=== PATIENT | female | born 1985 | race American Indian/Alaskan Native ===

== ENCOUNTER 2020-09-04 18:56 | Inpatient (IN) | payer MEDICAID ==
[2020-09-04] MEDS ORDERED: SODIUM CHLORIDE 0.9% 1000 ML 1,000 ML IV ONE (19:34)
[2020-09-04 19:44] LABS: Hematocrit 40.3 % (30.3-42.9); Hemoglobin 13.9 gm/dl (10.1-14.3); Mean Corpuscular HGB Conc 35 % (30-34); Mean Corpuscular Volume 85 fl (79-97); Platelet Count 447 K/mm3 (140-440); Red Blood Count 4.74 M/mm3 (3.65-5.03); Red Cell Distribution Width 14.2 % (13.2-15.2)
[2020-09-04 19:55] LABS: INR 0.93 (0.87-1.13); Partial Thromboplastin Time 25.3 Sec. (24.2-36.6)
[2020-09-04 20:21] LABS: Alanine Aminotransferase 31 units/L (7-56); Albumin 3.7 g/dL (3.9-5); BUN/Creatinine Ratio 15; Blood Urea Nitrogen 12 mg/dL (7-17); Hemolysis Index 54
--- NOTE | 2020-09-04 20:29 | Emergency Department Report ---
ED General Adult HPI - General Chief complaint: Arrhythmia/Palpitations Stated complaint: TACHYCARDIA Time Seen by Provider: 09/04/20 19:20 Source: EMS Mode of arrival: Ambulatory Limitations: Other - History of Present Illness Initial comments: The patient presents to the emergency department with her mother after being seen at [facility] for evaluation of hyperthyroidism. Per the patient's mom the patient has a developmental delay that she helps with the history. Patient has a history of hypothyroidism and takes thyroid medications. The mother states she gives the patient her thyroid medicine daily and there is no way she took more than 1 pill. Patient sees cushion worker which mother contacted today because the patient had had a couple of days of shaking and tremoring and there was concerned that the patient could be in a thyroid storm. Mom denies any [id number] medications besides multivitamin and fish oil. -: Gradual Severity scale (0 -10): 0 Consistency: constant Improves with: none Worsens with: none Associated Symptoms: denies other symptoms Treatments Prior to Arrival: none - Related Data Allergies Allergy/AdvReac Type Severity Reaction Status Date / Time No Known Allergies Allergy Unverified 09/04/20 19:39 ED Review of Systems ROS: Stated complaint: TACHYCARDIA Other details as noted in HPI Comment: All other systems reviewed and negative Constitutional: denies: chills, fever Eyes: denies: eye pain, eye discharge, vision change ENT: denies: ear pain, throat pain Respiratory: denies: cough, shortness of breath, wheezing Cardiovascular: denies: chest pain, palpitations Endocrine: no symptoms reported Gastrointestinal: denies: abdominal pain, nausea, diarrhea Genitourinary: denies: urgency, dysuria, discharge Musculoskeletal: denies: back pain, joint swelling, arthralgia Skin: denies: rash, lesions Neurological: denies: headache, weakness, paresthesias Psychiatric: denies: anxiety, depression Hematological/Lymphatic: denies: easy bleeding, easy bruising ED Past Medical Hx - Past Medical History Hx Hypertension: Yes Additional medical history: hypothyroidism - Social History Smoking Status: Never Smoker ED Physical Exam - General Limitations: Other General appearance: alert, in no apparent distress, other (Tremors present) - Head Head exam: Present: atraumatic, normocephalic - Eye Eye exam: Present: normal appearance, PERRL, EOMI - ENT ENT exam: Present: mucous membranes moist - Neck Neck exam: Present: normal inspection - Respiratory Respiratory exam: Present: normal lung sounds bilaterally. Absent: respiratory distress - Cardiovascular Cardiovascular Exam: Present: normal rhythm, tachycardia. Absent: systolic murmur, diastolic murmur, rubs, gallop - GI/Abdominal GI/Abdominal exam: Present: soft, normal bowel sounds. Absent: distended, tenderness - Extremities Exam Extremities exam: Present: normal inspection - Back Exam Back exam: Present: normal inspection - Neurological Exam Neurological exam: Present: alert, oriented X3, CN II-XII intact. Absent: motor sensory deficit - Psychiatric Psychiatric exam: Present: normal affect, normal mood - Skin Skin exam: Present: warm, dry, intact, normal color. Absent: rash ED Course Vital Signs 09/04/20 09/04/20 09/04/20 19:05 19:15 19:16 Temperature 98.0 F Pulse Rate 143 H 135 H 136 H Respiratory 18 26 H 27 H Rate Blood Pressure 145/75 145/75 Blood Pressure 145/75 [Left] O2 Sat by Pulse 98 98 99 Oximetry 09/04/20 09/04/20 09/04/20 19:18 19:20 19:22 Temperature Pulse Rate 133 H 132 H 133 H Respiratory 18 32 H 41 H Rate Blood Pressure 145/75 145/75 145/75 Blood Pressure [Left] O2 Sat by Pulse 99 98 97 Oximetry 09/04/20 09/04/20 09/04/20 19:24 19:26 19:28 Temperature Pulse Rate 134 H 136 H 136 H Respiratory 26 H 38 H 27 H Rate Blood Pressure 145/75 145/75 145/75 Blood Pressure [Left] O2 Sat by Pulse 98 98 99 Oximetry 09/04/20 09/04/20 09/04/20 19:30 19:33 19:35 Temperature Pulse Rate 146 H 140 H 128 H Respiratory 27 H 22 52 H Rate Blood Pressure 145/75 Blood Pressure [Left] O2 Sat by Pulse 98 98 97 Oximetry 09/04/20 09/04/20 09/04/20 19:37 19:39 19:41 Temperature Pulse Rate 137 H 134 H 138 H Respiratory 41 H 36 H 23 Rate Blood Pressure Blood Pressure [Left] O2 Sat by Pulse 97 99 99 Oximetry 09/04/20 09/04/20 09/04/20 19:43 19:45 19:47 Temperature Pulse Rate 137 H 135 H 153 H Respiratory 41 H 37 H 28 H Rate Blood Pressure Blood Pressure [Left] O2 Sat by Pulse 97 98 99 Oximetry 09/04/20 09/04/20 09/04/20 19:49 19:51 19:53 Temperature Pulse Rate 144 H 139 H 138 H Respiratory 25 H 48 H 33 H Rate Blood Pressure Blood Pressure [Left] O2 Sat by Pulse 98 98 98 Oximetry 09/04/20 09/04/20 09/04/20 19:55 19:57 19:59 Temperature Pulse Rate 137 H 138 H 137 H Respiratory 37 H 48 H 36 H Rate Blood Pressure 145/75 145/75 145/75 Blood Pressure [Left] O2 Sat by Pulse 96 97 97 Oximetry 09/04/20 09/04/20 09/04/20 20:01 20:03 20:04 Temperature Pulse Rate 136 H 132 H 133 H Respiratory 32 H 32 H 29 H Rate Blood Pressure 145/75 145/75 145/75 Blood Pressure [Left] O2 Sat by Pulse 98 97 97 Oximetry 09/04/20 09/04/20 09/04/20 20:05 20:07 20:09 Temperature Pulse Rate 133 H 136 H 134 H Respiratory 26 H 19 27 H Rate Blood Pressure 145/75 145/75 145/75 Blood Pressure [Left] O2 Sat by Pulse 97 97 98 Oximetry 09/04/20 09/04/20 09/04/20 20:11 20:13 20:15 Temperature Pulse Rate 133 H 129 H 132 H Respiratory 39 H 35 H 39 H Rate Blood Pressure 145/75 145/75 145/75 Blood Pressure [Left] O2 Sat by Pulse 97 97 98 Oximetry 09/04/20 09/04/20 09/04/20 20:17 20:18 20:31 Temperature Pulse Rate 130 H 134 H 140 H Respiratory 39 H 46 H 52 H Rate Blood Pressure 145/75 145/75 145/75 Blood Pressure [Left] O2 Sat by Pulse 98 98 98 Oximetry 09/04/20 09/04/20 09/04/20 20:33 20:35 20:37 Temperature Pulse Rate 131 H 124 H 123 H Respiratory 43 H 37 H 32 H Rate Blood Pressure 145/75 145/75 145/75 Blood Pressure [Left] O2 Sat by Pulse 97 98 97 Oximetry 06/02/21 06/02/21 06/02/21 20:39 20:41 20:43 Temperature Pulse Rate 124 H 130 H 128 H Respiratory 31 H 45 H 36 H Rate Blood Pressure 145/75 145/75 145/75 Blood Pressure [Left] O2 Sat by Pulse 97 98 96 Oximetry 09/04/20 09/04/20 09/04/20 20:45 20:47 20:49 Temperature Pulse Rate 119 H 119 H 122 H Respiratory 38 H 35 H 37 H Rate Blood Pressure 145/75 145/75 145/75 Blood Pressure [Left] O2 Sat by Pulse 97 97 96 Oximetry 09/04/20 20:51 Temperature Pulse Rate 115 H Respiratory 37 H Rate Blood Pressure 145/75 Blood Pressure [Left] O2 Sat by Pulse 97 Oximetry ED Medical Decision Making - Lab Data Result diagrams: 09/04/20 19:29 09/04/20 19:29 Lab Results 09/04/20 09/04/20 09/04/20 Range/Units 19:29 19:29 19:29 WBC 4.8 (4.5-11.0) K/mm3 RBC 4.74 (3.65-5.03) M/mm3 Hgb 13.9 (10.1-14.3) gm/dl Hct 40.3 (30.3-42.9) % MCV 85 (79-97) fl MCH 29 (28-32) pg MCHC 35 H (30-34) % RDW 14.2 (13.2-15.2) % Plt Count 447 H (140-440) K/mm3 Add Manual Diff Complete Total Counted 100 Seg Neuts % (Manual) 46.0 (40.0-70.0) % Lymphocytes % (Manual) 47.0 H (13.4-35.0) % Reactive Lymphs % (Man) 4.0 % Monocytes % (Manual) 3.0 (0.0-7.3) % Nucleated RBC % Not Reportable Seg Neutrophils # Man 2.2 (1.8-7.7) K/mm3 Band Neutrophils # 0.0 K/mm3 Lymphocytes # (Manual) 2.3 (1.2-5.4) K/mm3 Abs React Lymphs (Man) 0.2 K/mm3 Monocytes # (Manual) 0.1 (0.0-0.8) K/mm3 Eosinophils # (Manual) 0.0 (0.0-0.4) K/mm3 Basophils # (Manual) 0.0 (0.0-0.1) K/mm3 Metamyelocytes # 0.0 K/mm3 Myelocytes # 0.0 K/mm3 Promyelocytes # 0.0 K/mm3 Blast Cells # 0.0 K/mm3 WBC Morphology Not Reportable Hypersegmented Neuts Not Reportable Hyposegmented Neuts Not Reportable Hypogranular Neuts Not Reportable Smudge Cells Not Reportable Toxic Granulation Not Reportable Toxic Vacuolation Not Reportable Dohle Bodies Not Reportable Pelger-Huet Anomaly Not Reportable Jacob Rods Not Reportable Platelet Estimate Consistent w auto Clumped Platelets Not Reportable Plt Clumps, EDTA Not Reportable Large Platelets Not Reportable Giant Platelets Not Reportable Platelet Satelliting Not Reportable Plt Morphology Comment Not Reportable RBC Morphology Not Reportable Dimorphic RBCs Not Reportable Polychromasia Not Reportable Hypochromasia Not Reportable Poikilocytosis Not Reportable Anisocytosis 1+ Microcytosis Not Reportable Macrocytosis Not Reportable Spherocytes Not Reportable Pappenheimer Bodies Not Reportable Sickle Cells Not Reportable Target Cells Not Reportable Tear Drop Cells Not Reportable Ovalocytes Not Reportable Helmet Cells Not Reportable [place] Bodies Not Reportable [place] Rings Not Reportable [place] Cells Not Reportable Bite Cells Not Reportable Crenated Cell Not Reportable Elliptocytes Not Reportable Acanthocytes (Spur) Not Reportable Rouleaux Not Reportable Hemoglobin C Crystals Not Reportable Schistocytes Not Reportable Malaria parasites Not Reportable Sajan Bodies Not Reportable Hem Pathologist Commnt No PT 13.1 (12.2-14.9) Sec. INR 0.93 (0.87-1.13) APTT 25.3 (24.2-36.6) Sec. Sodium 134 L (137-145) mmol/L Potassium 3.6 (3.6-5.0) mmol/L Chloride 98.3 (98-107) mmol/L Carbon Dioxide 22 (22-30) mmol/L Anion Gap 17 mmol/L BUN 12 (7-17) mg/dL Creatinine 0.8 (0.6-1.2) mg/dL Estimated GFR > 60 ml/min BUN/Creatinine Ratio 15 % Glucose 156 H (65-100) mg/dL Lactic Acid (0.7-2.0) mmol/L Calcium 9.0 (8.4-10.2) mg/dL Phosphorus 2.30 L (2.5-4.5) mg/dL Magnesium 1.50 L (1.7-2.3) mg/dL Total Bilirubin 0.30 (0.1-1.2) mg/dL AST 37 (5-40) units/L ALT 31 (7-56) units/L Alkaline Phosphatase 95 (35-129) units/L NT-Pro-B Natriuret Pep 18.52 (0-450) pg/mL Total Protein 8.4 H (6.3-8.2) g/dL Albumin 3.7 L (3.9-5) g/dL Albumin/Globulin Ratio 0.8 % TSH (0.270-4.200) mlU/mL Thyroxine (T4) (4.0-12.0) ug/dL HCG, Quant (0-4) mIU/mL 09/04/20 09/04/20 09/04/20 Range/Units 19:29 19:36 19:36 WBC (4.5-11.0) K/mm3 RBC (3.65-5.03) M/mm3 Hgb (10.1-14.3) gm/dl Hct (30.3-42.9) % MCV (79-97) fl MCH (28-32) pg MCHC (30-34) % RDW (13.2-15.2) % Plt Count (140-440) K/mm3 Add Manual Diff Total Counted Seg Neuts % (Manual) (40.0-70.0) % Lymphocytes % (Manual) (13.4-35.0) % Reactive Lymphs % (Man) % Monocytes % (Manual) (0.0-7.3) % Nucleated RBC % Seg Neutrophils # Man (1.8-7.7) K/mm3 Band Neutrophils # K/mm3 Lymphocytes # (Manual) (1.2-5.4) K/mm3 Abs React Lymphs (Man) K/mm3 Monocytes # (Manual) (0.0-0.8) K/mm3 Eosinophils # (Manual) (0.0-0.4) K/mm3 Basophils # (Manual) (0.0-0.1) K/mm3 Metamyelocytes # K/mm3 Myelocytes # K/mm3 Promyelocytes # K/mm3 Blast Cells # K/mm3 WBC Morphology Hypersegmented Neuts Hyposegmented Neuts Hypogranular Neuts Smudge Cells Toxic Granulation Toxic Vacuolation Dohle Bodies Pelger-Huet Anomaly Jacob Rods Platelet Estimate Clumped Platelets Plt Clumps, EDTA Large Platelets Giant Platelets Platelet Satelliting Plt Morphology Comment RBC Morphology Dimorphic RBCs Polychromasia Hypochromasia Poikilocytosis Anisocytosis Microcytosis Macrocytosis Spherocytes Pappenheimer Bodies Sickle Cells Target Cells Tear Drop Cells Ovalocytes Helmet Cells [place] Bodies [place] Rings [place] Cells Bite Cells Crenated Cell Elliptocytes Acanthocytes (Spur) Rouleaux Hemoglobin C Crystals Schistocytes Malaria parasites Sajan Bodies Hem Pathologist Commnt PT (12.2-14.9) Sec. INR (0.87-1.13) APTT (24.2-36.6) Sec. Sodium (137-145) mmol/L Potassium (3.6-5.0) mmol/L Chloride (98-107) mmol/L Carbon Dioxide (22-30) mmol/L Anion Gap mmol/L BUN (7-17) mg/dL Creatinine (0.6-1.2) mg/dL Estimated GFR ml/min BUN/Creatinine Ratio % Glucose (65-100) mg/dL Lactic Acid 3.60 H* (0.7-2.0) mmol/L Calcium (8.4-10.2) mg/dL Phosphorus (2.5-4.5) mg/dL Magnesium (1.7-2.3) mg/dL Total Bilirubin (0.1-1.2) mg/dL AST (5-40) units/L ALT (7-56) units/L Alkaline Phosphatase (35-129) units/L NT-Pro-B Natriuret Pep (0-450) pg/mL Total Protein (6.3-8.2) g/dL Albumin (3.9-5) g/dL Albumin/Globulin Ratio % TSH < 0.005 L (0.270-4.200) mlU/mL Thyroxine (T4) 12.3 H (4.0-12.0) ug/dL HCG, Quant < 2 (0-4) mIU/mL 09/04/20 Range/Units 20:40 WBC (4.5-11.0) K/mm3 RBC (3.65-5.03) M/mm3 Hgb (10.1-14.3) gm/dl Hct (30.3-42.9) % MCV (79-97) fl MCH (28-32) pg MCHC (30-34) % RDW (13.2-15.2) % Plt Count (140-440) K/mm3 Add Manual Diff Total Counted Seg Neuts % (Manual) (40.0-70.0) % Lymphocytes % (Manual) (13.4-35.0) % Reactive Lymphs % (Man) % Monocytes % (Manual) (0.0-7.3) % Nucleated RBC % Seg Neutrophils # Man (1.8-7.7) K/mm3 Band Neutrophils # K/mm3 Lymphocytes # (Manual) (1.2-5.4) K/mm3 Abs React Lymphs (Man) K/mm3 Monocytes # (Manual) (0.0-0.8) K/mm3 Eosinophils # (Manual) (0.0-0.4) K/mm3 Basophils # (Manual) (0.0-0.1) K/mm3 Metamyelocytes # K/mm3 Myelocytes # K/mm3 Promyelocytes # K/mm3 Blast Cells # K/mm3 WBC Morphology Hypersegmented Neuts Hyposegmented Neuts Hypogranular Neuts Smudge Cells Toxic Granulation Toxic Vacuolation Dohle Bodies Pelger-Huet Anomaly Jacob Rods Platelet Estimate Clumped Platelets Plt Clumps, EDTA Large Platelets Giant Platelets Platelet Satelliting Plt Morphology Comment RBC Morphology Dimorphic RBCs Polychromasia Hypochromasia Poikilocytosis Anisocytosis Microcytosis Macrocytosis Spherocytes Pappenheimer Bodies Sickle Cells Target Cells Tear Drop Cells Ovalocytes Helmet Cells [place] Bodies [place] Rings [place] Cells Bite Cells Crenated Cell Elliptocytes Acanthocytes (Spur) Rouleaux Hemoglobin C Crystals Schistocytes Malaria parasites Sajan Bodies Hem Pathologist Commnt PT (12.2-14.9) Sec. INR (0.87-1.13) APTT (24.2-36.6) Sec. Sodium (137-145) mmol/L Potassium (3.6-5.0) mmol/L Chloride (98-107) mmol/L Carbon Dioxide (22-30) mmol/L Anion Gap mmol/L BUN (7-17) mg/dL Creatinine (0.6-1.2) mg/dL Estimated GFR ml/min BUN/Creatinine Ratio % Glucose (65-100) mg/dL Lactic Acid 3.30 H* (0.7-2.0) mmol/L Calcium (8.4-10.2) mg/dL Phosphorus (2.5-4.5) mg/dL Magnesium (1.7-2.3) mg/dL Total Bilirubin (0.1-1.2) mg/dL AST (5-40) units/L ALT (7-56) units/L Alkaline Phosphatase (35-129) units/L NT-Pro-B Natriuret Pep (0-450) pg/mL Total Protein (6.3-8.2) g/dL Albumin (3.9-5) g/dL Albumin/Globulin Ratio % TSH (0.270-4.200) mlU/mL Thyroxine (T4) (4.0-12.0) ug/dL HCG, Quant (0-4) mIU/mL - EKG Data -: EKG Interpreted by Me EKG shows normal: sinus rhythm Rate: tachycardia - Radiology Data Radiology results: report reviewed - Medical Decision Making Patient given propranolol and PTU Spoke with the hospitalist Dr. Negrete and patient was discussed in detail. I was asked to see if the patient could be transferred to another facility. Contacted [facility] at 10:40 PM and they were on diversion Contacted [facility] at 10:48 PM and there were medical diversion Contacted [facility] at 10:54 PM and they were on diversion as well as [place] Spoke to Dr. Poole per request of the hospitalist and the patient will be admitted to [facility] Critical Care Time: Yes Critical care time in (mins) excluding proc time.: 90 Critical care attestation.: If time is entered above; I have spent that time in minutes in the direct care of this critically ill patient, excluding procedure time. ED Disposition Clinical Impression: Thyrotoxicosis Disposition: OP ADMIT IP TO THIS HOSP Is pt being admited?: Yes Does the pt Need Aspirin: No Condition: Fair
--- NOTE | 2020-09-04 20:40 | XRay Report ---
CHEST 1 VIEW 09/04/2020 7:32 PM INDICATION / CLINICAL INFORMATION: tachycardic. COMPARISON: None available. FINDINGS: SUPPORT DEVICES: None. HEART / MEDIASTINUM: No significant abnormality. LUNGS / PLEURA: No significant pulmonary or pleural abnormality. No pneumothorax. ADDITIONAL FINDINGS: No significant additional findings. IMPRESSION: 1. No acute findings. Signer Name: Papa Redding MD Signed: 09/04/2020 8:36 PM Workstation Name: [id number]
[2020-09-04 21:02] LABS: HCG,Quantitative < 2 mIU/mL (0-4)
[2020-09-04 21:22] LABS: Total Cells Counted 100
[2020-09-04 21:23] LABS: Anisocytosis 1+; Platelet Estimate Consistent w Auto
[2020-09-04] MEDS ORDERED: PROPRANOLOL 40 MG TAB PO ONE (23:20)
[2020-09-04] MEDS ORDERED: ONDANSETRON 4 MG/2 ML INJ IV PRN (23:36)
[2020-09-04] MEDS ORDERED: ACETAMINOPHEN 325 MG TAB PO PRN (23:36)
[2020-09-04] MEDS ORDERED: propylthiouraciL 50 MG TAB PO ONE (23:37)
[2020-09-04] MEDS ORDERED: hydrALAZINE 20 MG/1 ML INJ IV PRN (23:40)
[2020-09-04] MEDS ORDERED: LORazepam 2 MG/ML VIAL IV PRN (23:43)
--- NOTE | 2020-09-04 23:49 | History and Physical Report ---
History of Present Illness Date of examination: 09/04/20 Date of admission: 09/04/20 Chief complaint: Palpitation Tremor History of present illness: 35 years old female with history of developmental delay was brought to the emergency department with her mother after being seen at [facility] for evaluation of hyperthyroidism. Patient has a history of hypothyroidism and takes thyroid medications. The mother states she gives the patient her thyroid medicine daily and there is no way she took more than 1 pill. Patient sees lens coater which mother contacted today because the patient had had a couple of days of shaking and tremoring and there was concerned that the patient could be in a thyroid storm. Mom denies any zzcp-fje-jzjwium medications besides multivitamin and fish oil. In the emergency room patient TSH is 0.005 and T4 12.3 also lactic acid 3.60 Past History Past Medical History: arrhythmia, hypothyroidism, other (Development delay) Medications and Allergies Allergies Allergy/AdvReac Type Severity Reaction Status Date / Time No Known Allergies Allergy Unverified 09/04/20 19:39 Active Meds: Active Medications Acetaminophen (Acetaminophen 325 Mg Tab) 650 mg PO Q4H PRN PRN Reason: Pain MILD(1-3)/Fever >100.5/VAN Famotidine (Famotidine 20 Mg Tab) 20 mg PO BID KIKI Heparin Sodium (Porcine) (Heparin 5,000 Unit/1 Ml Vial) 5,000 unit SUB-Q Q8HR KIKI Hydralazine HCl (Hydralazine 20 Mg/1 Ml Inj) 10 mg IV Q6H PRN PRN Reason: htn Dextrose/Sodium Chloride (D5/0.45ns) 1,000 mls @ 100 mls/hr IV DIRECT KIKI Lorazepam (Lorazepam 2 Mg/Ml Vial) 1 mg IV Q4H PRN PRN Reason: Anxiety Ondansetron HCl (Ondansetron 4 Mg/2 Ml Inj) 4 mg IV Q8H PRN PRN Reason: Nausea And Vomiting Propranolol HCl (Propranolol 10 Mg Tab) 50 mg PO Q12H KIKI Propylthiouracil (Propylthiouracil 50 Mg Tab) 500 mg PO ONCE ONE Stop: 09/05/20 23:38 Propylthiouracil (Propylthiouracil 50 Mg Tab) 50 mg PO TID KIKI Sodium Chloride (Sodium Chloride 0.9% 10 Ml Flush Syringe) 10 ml IV BID KIKI Sodium Chloride (Sodium Chloride 0.9% 10 Ml Flush Syringe) 10 ml IV PRN PRN PRN Reason: LINE FLUSH Review of Systems Cardiovascular: palpitations Neurological: tremors Exam - Constitutional Vitals: Temp Pulse Resp BP Pulse Ox 98.0 F 115 H 37 H 145/75 97 09/04/20 19:05 09/04/20 20:51 09/04/20 20:51 09/04/20 20:51 09/04/20 20:51 General appearance: Present: mild distress, well-nourished - EENT Eyes: Present: PERRL ENT: hearing intact, clear oral mucosa - Neck Neck: Present: supple, normal ROM - Respiratory Respiratory effort: normal Respiratory: bilateral: CTA - Cardiovascular Rhythm: other (Tachycardic) Heart Sounds: Present: S1 & S2. Absent: rub, click - Extremities Extremities: pulses symmetrical, No edema Peripheral Pulses: within normal limits - Abdominal General gastrointestinal: Present: soft, non-tender, non-distended, normal bowel sounds Female genitourinary: Present: normal - Integumentary Integumentary: Present: clear, warm, dry - Musculoskeletal Musculoskeletal: gait normal, strength equal bilaterally - Psychiatric Psychiatric: appropriate mood/affect, intact judgment & insight - Neurologic Neurologic: CNII-XII intact, moves all extremities Results - Labs CBC & Chem 7: 09/04/20 19:29 09/04/20 19:29 Labs: Laboratory Last Values WBC 4.8 K/mm3 (4.5-11.0) 09/04/20 19:29 RBC 4.74 M/mm3 (3.65-5.03) 09/04/20 19:29 Hgb 13.9 gm/dl (10.1-14.3) 09/04/20 19:29 Hct 40.3 % (30.3-42.9) 09/04/20 19:29 MCV 85 fl (79-97) 09/04/20 19:29 MCH 29 pg (28-32) 09/04/20 19:29 MCHC 35 % (30-34) H 09/04/20 19:29 RDW 14.2 % (13.2-15.2) 09/04/20 19:29 Plt Count 447 K/mm3 (140-440) H 09/04/20 19:29 Add Manual Diff Complete 09/04/20 19:29 Total Counted 100 09/04/20 19:29 Seg Neuts % (Manual) 46.0 % (40.0-70.0) 09/04/20 19:29 Lymphocytes % (Manual) 47.0 % (13.4-35.0) H 09/04/20 19:29 Reactive Lymphs % (Man) 4.0 % 09/04/20 19:29 Monocytes % (Manual) 3.0 % (0.0-7.3) 09/04/20 19:29 Nucleated RBC % Not Reportable 09/04/20 19:29 Seg Neutrophils # Man 2.2 K/mm3 (1.8-7.7) 09/04/20 19:29 Band Neutrophils # 0.0 K/mm3 09/04/20 19: Lymphocytes # (Manual) 2.3 K/mm3 (1.2-5.4) 09/04/20 19:29 Abs React Lymphs (Man) 0.2 K/mm3 09/04/20 19:29 Monocytes # (Manual) 0.1 K/mm3 (0.0-0.8) 09/04/20 19:29 Eosinophils # (Manual) 0.0 K/mm3 (0.0-0.4) 09/04/20 19:29 Basophils # (Manual) 0.0 K/mm3 (0.0-0.1) 09/04/20 19:29 Metamyelocytes # 0.0 K/mm3 09/04/20 19:29 Myelocytes # 0.0 K/mm3 09/04/20 19:29 Promyelocytes # 0.0 K/mm3 09/04/20 19:29 Blast Cells # 0.0 K/mm3 09/04/20 19:29 WBC Morphology Not Reportable 09/04/20 19:29 Hypersegmented Neuts Not Reportable 09/04/20 19:29 Hyposegmented Neuts Not Reportable 09/04/20 19:29 Hypogranular Neuts Not Reportable 09/04/20 19:29 Smudge Cells Not Reportable 09/04/20 19:29 Toxic Granulation Not Reportable 09/04/20 19:29 Toxic Vacuolation Not Reportable 09/04/20 19:29 Dohle Bodies Not Reportable 09/04/20 19:29 Pelger-Huet Anomaly Not Reportable 09/04/20 19:29 Jacob Rods Not Reportable 09/04/20 19:29 Platelet Estimate Consistent w auto 09/04/20 19:29 Clumped Platelets Not Reportable 09/04/20 19:29 Plt Clumps, EDTA Not Reportable 09/04/20 19:29 Large Platelets Not Reportable 09/04/20 19:29 Giant Platelets Not Reportable 09/04/20 19:29 Platelet Satelliting Not Reportable 09/04/20 19:29 Plt Morphology Comment Not Reportable 09/04/20 19:29 RBC Morphology Not Reportable 09/04/20 19:29 Dimorphic RBCs Not Reportable 09/04/20 19:29 Polychromasia Not Reportable 09/04/20 19:29 Hypochromasia Not Reportable 09/04/20 19:29 Poikilocytosis Not Reportable 09/04/20 19:29 Anisocytosis 1+ 09/04/20 19:29 Microcytosis Not Reportable 09/04/20 19:29 Macrocytosis Not Reportable 09/04/20 19:29 Spherocytes Not Reportable 09/04/20 19:29 Pappenheimer Bodies Not Reportable 09/04/20 19:29 Sickle Cells Not Reportable 09/04/20 19:29 Target Cells Not Reportable 09/04/20 19:29 Tear Drop Cells Not Reportable 09/04/20 19:29 Ovalocytes Not Reportable 09/04/20 19:29 Helmet Cells Not Reportable 09/04/20 19:29 Darnell-[place] Bodies Not Reportable 09/04/20 19:29 [place] Rings Not Reportable 09/04/20 19:29 Rio Cells Not Reportable 09/04/20 19:29 Bite Cells Not Reportable 09/04/20 19:29 Crenated Cell Not Reportable 09/04/20 19:29 Elliptocytes Not Reportable 09/04/20 19:29 Acanthocytes (Spur) Not Reportable 09/04/20 19:29 Rouleaux Not Reportable 09/04/20 19:29 Hemoglobin C Crystals Not Reportable 09/04/20 19:29 Schistocytes Not Reportable 09/04/20 19:29 Malaria parasites Not Reportable 09/04/20 19:29 Sajan Bodies Not Reportable 09/04/20 19:29 Hem Pathologist Commnt No 09/04/20 19:29 PT 13.1 Sec. (12.2-14.9) 09/04/20 19:29 INR 0.93 (0.87-1.13) 09/04/20 19:29 APTT 25.3 Sec. (24.2-36.6) 09/04/20 19:29 Sodium 134 mmol/L (137-145) L 09/04/20 19:29 Potassium 3.6 mmol/L (3.6-5.0) 09/04/20 19:29 Chloride 98.3 mmol/L (98-107) 09/04/20 19:29 Carbon Dioxide 22 mmol/L (22-30) 09/04/20 19:29 Anion Gap 17 mmol/L 09/04/20 19:29 BUN 12 mg/dL (7-17) 09/04/20 19:29 Creatinine 0.8 mg/dL (0.6-1.2) 09/04/20 19:29 Estimated GFR > 60 ml/min 09/04/20 19:29 BUN/Creatinine Ratio 15 % 09/04/20 19:29 Glucose 156 mg/dL (65-100) H 09/04/20 19:29 Lactic Acid 3.30 mmol/L (0.7-2.0) H* 09/04/20 20:40 Calcium 9.0 mg/dL (8.4-10.2) 09/04/20 19:29 Phosphorus 2.30 mg/dL (2.5-4.5) L 09/04/20 19:29 Magnesium 1.50 mg/dL (1.7-2.3) L 09/04/20 19:29 Total Bilirubin 0.30 mg/dL (0.1-1.2) 09/04/20 19:29 AST 37 units/L (5-40) 09/04/20 19:29 ALT 31 units/L (7-56) 09/04/20 19:29 Alkaline Phosphatase 95 units/L (35-129) 09/04/20 19:29 NT-Pro-B Natriuret Pep 18.52 pg/mL (0-450) 09/04/20 19:29 Total Protein 8.4 g/dL (6.3-8.2) H 09/04/20 19:29 Albumin 3.7 g/dL (3.9-5) L 09/04/20 19:29 Albumin/Globulin Ratio 0.8 % 09/04/20 19:29 TSH < 0.005 mlU/mL (0.270-4.200) L 09/04/20 19:29 Thyroxine (T4) 12.3 ug/dL (4.0-12.0) H 09/04/20 19:36 HCG, Quant < 2 mIU/mL (0-4) 09/04/20 19:36 Microbiology: Microbiology 09/04/20 19:36 Peripheral/Venous Blood Culture - Preliminary Culture in Progress 09/04/20 19:36 Peripheral/Venous Blood Culture - Preliminary Culture in Progress - Imaging and Cardiology Chest x-ray: report reviewed Assessment and Plan VTE prophylaxis?: Chemical Plan of care discussed with patient/family: Yes - Patient Problems (1) Thyrotoxicosis Current Visit: Yes Status: Acute Plan to address problem: Admit the patient to the IMCU. We will put the patient on propranolol 50 mg p.o. twice daily. Propylthiouracil 50 mg 3 times daily. We will discontinue the thyroid medication. Ativan 1 mg IV every 4 hours as needed. We will monitor the patient closely. We also consult critical care evaluation. ER physician tried to transfer the patient for endocrinology evaluation but unable to transfer. (2) Palpitation Current Visit: Yes Status: Acute Plan to address problem: propranolol 50 mg p.o. twice daily. Propylthiouracil 50 mg 3 times daily. We will discontinue the thyroid medication. Ativan 1 mg IV every 4 hours as needed. We will monitor the patient closely. We also consult critical care evaluation. ER physician tried to transfer the patient for endocrinology evaluation but unable to transfer. (3) Lactic acidosis Current Visit: Yes Status: Acute Plan to address problem: We will put the patient on D5 half-normal saline at the rate of 100 cc/h. Rocephin 2 g IV daily. We will recheck the lactic acid CBC in the morning (4) Developmental delay, borderline Current Visit: Yes Status: Acute Plan to address problem: Stable. We will monitor the patient closely (5) DVT prophylaxis Current Visit: Yes Status: Acute Plan to address problem: Heparin 5000 units subcu every 8 hours for DVT prophylaxis. Pepcid 20 mg p.o. twice daily for GI prophylaxis. Patient is a full code
[2020-09-05] MEDS: cefTRIAXone/NS 2 GM/100 ML 2 GM/100 ML BAG IV SCH ×2 (00:37→10:38)
[2020-09-05] MEDS: D5W/0.45% NACL 1,000 ML IV SCH ×2 (04:35→18:26)
[2020-09-05] MEDS: HEPARIN 5,000 UNIT/1 ML VIAL SUB-Q SCH ×3 (07:02→22:09)
[2020-09-05 07:45] LABS: Hematocrit 35.7 % (30.3-42.9); Hemoglobin 12.1 gm/dl (10.1-14.3); Mean Corpuscular HGB Conc 34 % (30-34); Mean Corpuscular Volume 85 fl (79-97); Platelet Count 394 K/mm3 (140-440); Red Blood Count 4.22 M/mm3 (3.65-5.03); Red Cell Distribution Width 14.3 % (13.2-15.2)
[2020-09-05 08:02] LABS: Blood Urea Nitrogen 8 mg/dL (7-17); Calcium 8.3 mg/dL (8.4-10.2); Hemolysis Index 1
[2020-09-05 08:13] LABS: BUN/Creatinine Ratio 11
[2020-09-05 08:31] LABS: Total Cells Counted 100
[2020-09-05 08:32] LABS: Platelet Estimate Consistent w Auto; RBC Morphology Normal
[2020-09-05] MEDS: propylthiouraciL 50 MG TAB PO SCH ×3 (09:59→21:45)
[2020-09-05] MEDS ORDERED: PROPRANOLOL 10 MG TAB PO SCH ×2 (10:00→18:00)
[2020-09-05] MEDS: FAMOTIDINE 20 MG TAB PO SCH ×2 (10:00→22:08)
[2020-09-05] MEDS ORDERED: PROPRANOLOL 40 MG TAB PO SCH (10:00)
[2020-09-05 11:16] LABS: Bilirubin,Urine NEG (Negative); Blood,Urine LG (Negative); Color,Urine Yellow (Yellow); Mucus,Urine FEW /HPF; Protein,Urine <15 mg/dL mg/dL (Negative); Urobilinogen,Urine < 2.0 mg/dL (<2.0)
[2020-09-05 11:27] LABS: Amphetamine Screen,Urine Negative; Benzodiazepines Screen,Urine Negative; Cannabinoid Screen,Urine Negative; Cocaine Screen,Urine Negative; Methadone Screen,Urine Negative; Opiate Screen,Urine Negative
[2020-09-05] MEDS: PROPRANOLOL 40 MG TAB PO SCH (18:25)
[2020-09-05] MEDS: methIMAzole 5 MG TAB PO SCH ×2 (18:25→22:08)
[2020-09-06] MEDS: D5W/0.45% NACL 1,000 ML IV SCH (05:06)
[2020-09-06] MEDS: HEPARIN 5,000 UNIT/1 ML VIAL SUB-Q SCH (05:10)
[2020-09-06] MEDS: methIMAzole 5 MG TAB PO SCH (05:10)
[2020-09-06] MEDS: PROPRANOLOL 40 MG TAB PO SCH (05:51)
--- NOTE | 2020-09-06 07:04 | Progress Note ---
Assessment and Plan - Patient Problems (1) Thyrotoxicosis Current Visit: Yes Status: Acute Plan to address problem: Patient is a very low TSH and high T4 Patient is medication changed to propranolol 40 every 12 and methimazole 5 mg every 8 hours Will review her response tomorrow Patient needs endocrinology referral as outpatient for nuclear studies of thyroid (2) Developmental delay, borderline Current Visit: Yes Status: Chronic Plan to address problem: Mom is a good supportive care (3) Lactic acidosis Current Visit: Yes Status: Acute Plan to address problem: Insignificant No signs of infection (4) DVT prophylaxis Current Visit: Yes Status: Acute Plan to address problem: On heparin and GI prophylaxis Subjective Date of service: 09/05/20 Principal diagnosis: Thyrotoxicosis Interval history: 35 years old female with history of developmental delay was brought to the emergency department with her mother after being seen at [facility] for evaluation of hyperthyroidism. Patient has a history of hypothyroidism and takes thyroid medications. The mother states she gives the patient her thyroid medicine daily and there is no way she took more than 1 pill. Patient sees boat builder and repairer which mother contacted today because the patient had had a couple of days of shaking and tremoring and there was concerned that the patient could be in a thyroid storm. Mom denies any nndr-nnu-yhudqjy medications besides multivitamin and fish oil. In the emergency room patient TSH is 0.005 and T4 12.3 also lactic acid 3.60 09/05/2020 Labs and clinical picture consistent with thyrotoxicosis Elevated lactic acid--- no signs of infection Objective - Constitutional Vitals: Vital Signs - 12hr 09/05/20 09/05/20 09/06/20 19:16 22:00 00:35 Temperature 97.4 F L 98.2 F Pulse Rate 76 71 71 Pulse Rate [ 71 Right Radial] Respiratory 20 18 18 Rate Blood Pressure 122/65 141/83 O2 Sat by Pulse 97 98 Oximetry 09/06/20 09/06/20 04:50 05:51 Temperature 98.3 F Pulse Rate 66 74 Pulse Rate [ Right Radial] Respiratory 20 Rate Blood Pressure 126/76 126/76 O2 Sat by Pulse 97 Oximetry General appearance: Present: no acute distress, well-nourished - EENT Eyes: PERRL, EOM intact ENT: hearing intact, clear oral mucosa Ears: bilateral: normal - Neck Neck: supple, normal ROM - Respiratory Respiratory effort: normal Respiratory: bilateral: CTA - Breasts Breasts: normal - Cardiovascular Heart rate: 120 Rhythm: regular Heart Sounds: Present: S1 & S2. Absent: gallop, rub Extremities: pulses intact, No edema, normal color, Full ROM - Gastrointestinal General gastrointestinal: Present: soft, non-tender, non-distended, normal bowel sounds - Genitourinary Female genitourinary: normal - Integumentary Integumentary: clear, warm, dry - Musculoskeletal Musculoskeletal: 1, strength equal bilaterally - Neurologic Neurologic: moves all extremities - Psychiatric Psychiatric: memory intact, appropriate mood/affect, intact judgment & insight - Labs CBC & Chem 7: 09/05/20 07:24 09/05/20 07:24 Labs: Abnormal lab results 09/05/20 09/05/20 Range/Units 07:24 07:24 WBC 4.4 L (4.5-11.0) K/mm3 Seg Neuts % (Manual) 25.0 L (40.0-70.0) % Lymphocytes % (Manual) 70.0 H (13.4-35.0) % Seg Neutrophils # Man 1.1 L (1.8-7.7) K/mm3 Sodium 136 L (137-145) mmol/L Potassium 3.2 L (3.6-5.0) mmol/L Glucose 105 H (65-100) mg/dL Calcium 8.3 L (8.4-10.2) mg/dL
--- NOTE | 2020-09-06 09:57 | Electrocardiograph Report ---
[facility] Test Date: 2020-09-04 Test Time: 19:09:49 Pat Name: CASSANDRA TREJO Department: Room: A477 1 Gender: F Drying Equipment Operator: MICHELLE : 1985 Requested By: GLORIA ALMARAZ Order Number: [id number] Reading MD: Harjeet Wright Measurements Intervals [place] Rate: 140 P: 57 IN: 120 QRS: 47 QRSD: 80 T: -4 QT: 303 QTc: 463 Interpretive Statements Sinus tachycardia Paired ventricular premature complexes Aberrant complex No previous ECG available for comparison Electronically Signed On 09-06-2020 9:57:14 EDT by Harjeet Wright
[2020-09-06] MEDS: propylthiouraciL 50 MG TAB PO SCH (10:01)
[2020-09-06] MEDS: FAMOTIDINE 20 MG TAB PO SCH (10:01)
[2020-09-06] MEDS: cefTRIAXone/NS 2 GM/100 ML 2 GM/100 ML BAG IV SCH (10:02)
--- NOTE | 2020-09-06 11:34 | Discharge Summary ---
Providers - Providers Date of Admission: 09/04/20 23:36 Attending physician: ZOILA FERNANDEZ MD Primary care physician: OFFICE LEAD Hospitalization Reason for admission: Thyrotoxicosis Condition: Fair Hospital course: 35 years old female with history of developmental delay was brought to the emergency department with her mother after being seen at [facility] for evaluation of hyperthyroidism. Patient has a history of hypothyroidism and takes thyroid medications. The mother states she gives the patient her thyroid medicine daily and there is no way she took more than 1 pill. Patient sees hot worker which mother contacted today because the patient had had a couple of days of shaking and tremoring and there was concerned that the patient could be in a thyroid storm. Mom denies any wudk-jqr-ggyskgg medications besides multivitamin and fish oil. In the emergency room patient TSH is 0.005 and T4 12.3 also lactic acid 3.60 09/05/2020 Labs and clinical picture consistent with thyrotoxicosis Elevated lactic acid--- no signs of infection Patient was started on methimazole and propranolol with good improvement noted. She is clinically stable for discharge today I discussed with the family the importance of following up with hot worker outpatient and also to discontinue the Synthroid. No infectious process was noted at this time. (1) Thyrotoxicosis Current Visit: Yes Status: Acute Plan to address problem: Patient is a very low TSH and high T4 Patient is medication changed to propranolol 40 every 12 and methimazole 5 mg every 8 hours Will review her response tomorrow Patient needs endocrinology referral as outpatient for nuclear studies of thyroid (2) Developmental delay, borderline Current Visit: Yes Status: Chronic Plan to address problem: Mom is a good supportive care (3) Lactic acidosis Current Visit: Yes Status: Acute Plan to address problem: Insignificant No signs of infection Disposition: DC- TO HOME OR SELFCARE Final Discharge Diagnosis (Prints w/discharge instructions): Symptomatic hyperthyroidism with thyrotoxicosis Time spent for discharge: 35-minute Core Measure Documentation - Palliative Care Palliative Care/ Comfort Measures: Not Applicable - Core Measures Any of the following diagnoses?: none Exam - Physical Exam Narrative exam: General appearance: Present: No distress, well-nourished - EENT Eyes: Present: PERRL ENT: hearing intact, clear oral mucosa No proptosis - Neck Neck: Present: supple, normal ROM - Respiratory Respiratory effort: normal Respiratory: bilateral: CTA - Cardiovascular Rhythm: regular rate and rhythm Heart Sounds: Present: S1 & S2. Absent: rub, click - Extremities Extremities: pulses symmetrical, No edema Peripheral Pulses: within normal limits - Abdominal General gastrointestinal: Present: soft, non-tender, non-distended, normal bowel sounds Female genitourinary: Present: normal - Integumentary Integumentary: Present: clear, warm, dry - Musculoskeletal Musculoskeletal: gait normal, strength equal bilaterally - Psychiatric Psychiatric: appropriate mood/affect, intact judgment & insight - Neurologic Neurologic: CNII-XII intact, moves all extremities - Constitutional Vitals: Temp Pulse Resp BP Pulse Ox 98.3 F 65 18 130/71 99 09/06/20 08:13 09/06/20 10:01 09/06/20 08:13 09/06/20 08:13 09/06/20 10:09 Plan Activity: advance as tolerated, fall precautions Diet: low fat Special Instructions: record daily weights, record daily BP diary Plan of Treatment: Must follow with an hot worker in 3 to 5 days Follow up with: PRIMARY CARE, [Primary Care Provider] - 3-5 Days Prescriptions: Famotidine [Pepcid] 20 mg PO BID #60 tablet Propranolol HCl 20 mg PO BID #60 tablet methIMAzole [Tapazole] 5 mg PO Q8HR #90 tablet
--- NOTE | 2020-09-06 12:21 | Electrocardiograph Report ---
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 Compared to ECG 09/04/2020 19:09:49 Sinus tachycardia no longer present Ventricular premature complex(es) no longer present Aberrant conduction of supraventricular beat(s) no longer present Electronically Signed On 09-06-2020 12:21:14 EDT by Harjeet Wright
[2020-09-06 12:46] VITALS: BP 122/57
== END 2020-09-06 14:11 | disposition home or self-care (01) | DRG 644 ==
LOC: ED 18:56 → IMCU 23:36 → 4A 09-05 02:26
PROVIDERS: ADMIT Hospitalist; ATTEND Internal Medicine
DX: E05.90 Thyrotoxicosis, unspecified without thyrotoxic crisis or storm (principal); E87.2 Acidosis; I10 Essential (primary) hypertension; R00.2 Palpitations
CPT/HCPCS: 36415; 71045; 80048; 80053; 80307; 81001; 82140; 83735; 83880; 84100; 84436; 84443; 84702; 85007; 85025; 85610; 85730; 87040; 93005; 99292; G0378; J0696; J1644; J7030